=== PATIENT | female | born 1970 | race Caucasian/White ===

== ENCOUNTER 2018-09-29 14:26 | Emergency (ER) | payer OTHER ==
[2018-09-29 15:00] VITALS: BP 111/61
[2018-09-29] MEDS ORDERED: Lidocaine 1% MPF ** 5 ML VIAL INJ ONE (15:49)
--- NOTE | 2018-09-29 16:06 | UC ---
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 UP TO DATE TETANUS 2014. - History of Current Complaint Chief Complaint: UCUpperExtremity Time Seen by Provider: 09/29/18 15:34 Stated Complaint: SPLINTER IN FINGER Hx Obtained From: Patient Onset/Duration: Sudden Onset, Lasting Hours, Still Present Timing: Constant Onset Severity: Moderate Current Severity: Moderate Pain Intensity: 3 Pain Scale Used: 0-10 Numeric - Allergy/Home Medications Allergies/Adverse Reactions: Allergies Allergy/AdvReac Type Severity Reaction Status Date / Time No Known Allergies Allergy Verified 09/29/18 15:00 Home Medications: Home Medications buPROPion SR TAB* [Wellbutrin SR TAB*] 450 mg PO DAILY 09/29/18 [History Confirmed 09/29/18] PMH/Surg Hx/FS Hx/Imm Hx Previously Healthy: Yes - Surgical History Surgical History: None - Family History Known Family History: Positive: Non-Contributory - Social History Alcohol Use: Rare Substance Use Type: None Smoking Status (MU): Never Smoked Tobacco - Immunization History Most Recent Tetanus Shot: UTD Review of Systems All Other Systems Reviewed And Are Negative: Yes Constitutional: Positive: Negative Skin: Positive: Other - SPLINTER LEFT FINGER Respiratory: Positive: Negative Cardiovascular: Positive: Negative Gastrointestinal: Positive: Negative Musculoskeletal: Positive: Negative Physical Exam Triage Information Reviewed: Yes Appearance: Well-Appearing, No Pain Distress, Well-Nourished Vital Signs: Initial Vital Signs Temp 97.6 F 09/29/18 14:56 Pulse 82 09/29/18 14:56 Resp 18 09/29/18 14:56 BP 111/61 09/29/18 14:56 Pulse Ox 100 09/29/18 14:56 Vital Signs Reviewed: Yes Eyes: Positive: Conjunctiva Clear ENT: Positive: Hearing grossly normal Neck: Positive: Supple Respiratory: Positive: No respiratory distress, No accessory muscle use Cardiovascular: Positive: Pulses Normal Abdomen Description: Positive: Soft Musculoskeletal: Positive: ROM Intact, No Edema Neurological: Positive: Alert Psychological: Positive: Age Appropriate Behavior Skin: Positive: Other - SPLINER UNDER LEFT INDEX FINGER NAIL Course/Dx - Course Course Of Treatment: TIMEOUT COMPLETED. LEFT INDEX FINGER PREPPED IN STERILE FASHION. DIGITAL BLOCK PERFORMED WITH GOOD EFFECT. 6 MM WOODEN SPLINTER EXTRACTED FROM UNDER NAIL USING HEMOSTAT AND SPLINTER FORCEPS. SPLINTER APPEARS TO HAVE BEEN REMOVED IN ENTIRETY. BAND-AID APPLIED. KEFLEX PROVIDED FOR INFECTION PROPHYLAXIS. ADVISED HOT SOAKS SEVERAL TIMES DAILY. FOLLOW-UP IF NEEDED. - Diagnoses Provider Diagnosis: Splinter of finger Discharge - Sign-Out/Discharge Documenting (check all that apply): Patient Departure All imaging exams completed and their final reports reviewed: No Studies - Discharge Plan Condition: Stable Disposition: HOME Prescriptions: Cephalexin CAP* [Keflex 500 CAP*] 500 mg PO BID #9 cap Patient Education Materials: Soft Tissue Foreign Body (ED) Referrals: Ledy Travis MD [Primary Care Provider] - If Needed Additional Instructions: THE SPLINTER WAS SUCCESSFULLY REMOVED FROM UNDER YOUR NAIL TODAY. TAKE THE ANTIBIOTICS TWICE DAILY TO PREVENT INFECTION. BE VIGILANT OF THE AREA AND SEEK FOLLOW-UP IF YOU DEVELOP SPREADING REDNESS OF THE SKIN, PURULENT DRAINAGE, INCREASED PAIN, FEVER OR ANY OTHER CONCERNING SYMPTOMS. I RECOMMEND HOT SOAKS SEVERAL TIMES DAILY FOR THE NEXT FEW DAYS. OTC MEDS NEEDED FOR DISCOMFORT. - Billing Disposition and Condition Condition: STABLE Disposition: Home
[2018-09-29] MEDS ORDERED: Cephalexin CAP* 500 MG PO ONE (16:57)
== END 2018-09-29 17:10 | disposition home or self-care (01) ==
LOC: UCEAST 14:26
DX: S60.451A Superficial foreign body of left index finger, initial encounter (principal); W45.8XXA Other foreign body or object entering through skin, initial encounter; Y93.E9 Activity, other interior property and clothing maintenance; Y92.019 Unspecified place in single-family (private) house as the place of occurrence of the external cause; Y99.8 Other external cause status
CPT/HCPCS: 10120; 99212; A9270-GY; G0463